=== PATIENT | male | born 1950 | race African-American/Black ===

== ENCOUNTER 2016-09-13 15:25 | Emergency (ER) | payer OTHER ==
[~2016-09-13] VITALS: Ht 165.1 cm; Wt 64.0 kg
[2016-09-13 15:25] VITALS: BP 119/48; PULSE 58; RESP 16; TEMP 98.2; O2SAT 99
--- NOTE | 2016-09-13 15:25 | NUR ---
PLACED IN BED 4, TRIAGED AT BEDSIDE BIB SQ 61 PT WAS AT THE DENTIST OFFICE
--- NOTE | 2016-09-13 15:36 | NUR ---
accu-check 81.meal served.
--- NOTE | 2016-09-13 15:37 | NUR ---
Placed on cardiac care nurse, blood pressure machine and pulse oximeter. To gown for exam. Side rails up.
--- NOTE | 2016-09-13 15:40 | NUR ---
pt refused iv,Dr peoples informed.
--- NOTE | 2016-09-13 15:41 | NUR ---
ER at bedside examining patient.
[2016-09-13 15:57] LABS: HEMOGLOBIN 10.4 g/dL (14.0-18.0); LYMPHOCYTES # (AUTO) 0.8 K/uL (1.0-5.5); MEAN CORPUSCULAR HEMOGLOBIN 22 pg (27-31); MEAN CORPUSCULAR VOLUME 70 fL (79.0-98.0)
--- NOTE | 2016-09-13 16:01 | NUR ---
repeat accu-check 118
[2016-09-13 16:06] LABS: CALCIUM 10.3 mg/dL (8.4-11.0); CREATININE 1.36 mg/dL (0.55-1.30); POTASSIUM 4.3 mmol/L (3.5-5.1); PROTHROMBIN TIME 10.7 SECS (9.5-12.5)
[2016-09-13 16:10] LABS: ALBUMIN 4.4 g/dL (3.4-4.8); TOTAL BILIRUBIN 0.3 mg/dL (0.0-1.0); TOTAL PROTEIN, SERUM 8.8 g/dL (6.4-8.3)
[2016-09-13 16:12] LABS: BASOPHILS # (AUTO) 0.1 K/uL (0.0-0.2); BASOPHILS % (AUTO) 2.4 % (0.0-2.0); EOSINOPHILS % (AUTO) 0.7 % (0.0-4.0); LYMPHOCYTES % (AUTO) 12.6 % (20.5-51.5); MEAN CORPUSCULAR HGB CONC 32 % (32-36); MONOCYTES # (AUTO) 0.6 K/uL (0.0-1.0); MONOCYTES % (AUTO) 9.9 % (1.7-9.3); NEUTROPHILS # (AUTO) 4.6 K/uL (1.8-7.7); NEUTROPHILS % (AUTO) 74.4 % (40.0-70.0); PLATELET COUNT (AUTO) 197 K/uL (130-430); RED BLOOD CELL COUNT(AUTO) 4.72 MIL/uL (4.2-6.2); RED CELL DISTRIBUTION WIDTH 14.2 % (9.0-15.0); WHITE BLOOD COUNT (AUTO) 6.1 K/uL (4.8-10.8)
--- NOTE | 2016-09-13 16:57 | NUR ---
repeat blood surgar 139
--- NOTE | 2016-09-13 17:05 | NUR ---
pt able to ambulate without any assistance. gait steady,no dizzy,no pain. Dr peoples awared.pt for discharge.
[2016-09-13 17:09] VITALS: BP 130/52; PULSE 61; RESP 18; O2SAT 100
--- NOTE | 2016-09-13 17:43 | NUR ---
Patient given written and verbal discharge instructions and verbalizes understanding. ER MD discussed with patient the results and treatment provided. Patient in stable condition. ID arm band removed. Rx of 0 given. Patient educated on pain management and to follow up with PMD. Pain Scale []. Opportunity for questions provided and answered.
== END 2016-09-13 17:43 | disposition home or self-care (01) ==
LOC: SED 15:25
DX: E11.649 Type 2 diabetes mellitus with hypoglycemia without coma (principal); I10 Essential (primary) hypertension
CPT/HCPCS: 36415; 71010; 80053; 83880; 84484; 85025; 85610-TC; 93005; 99285